=== PATIENT | male | born 1965 | race Caucasian/White ===

== ENCOUNTER → 2017-01-12 | Outpatient (REF) | payer BC | LOC: M LAB REF 13:05 | PROVIDERS: ATTEND Physician Assistant Medical | DX: J02.9 Acute pharyngitis, unspecified (principal) ==

== ENCOUNTER → 2017-03-09 | Outpatient (REF) | payer BC ==
[2017-03-09 14:42] LABS: MEAN CORPUSCULAR HEMOGLOBIN 31.2 pg (27.0-33.0); MEAN CORPUSCULAR HGB CONC 32.8 g/dl (32.0-36.5); RED CELL DISTRIBUTION WIDTH 12.7 % (11.5-14.5); WHITE BLOOD COUNT 13.2 K/mm3 (4.0-10.0)
[2017-03-09 15:05] LABS: ALBUMIN 4.2 GM/DL (3.2-5.2); ALBUMIN/GLOBULIN RATIO 1.27 (1.00-1.93); ALKALINE PHOSPHATASE 86 U/L (45-117); ALT/SGPT 70 U/L (12-78); ANION GAP 5 MEQ/L (8-16); AST/SGOT 26 U/L (15-37); BILIRUBIN,TOTAL 0.3 MG/DL (0.2-1.0); BLOOD UREA NITROGEN 16 MG/DL (7-18); CALCIUM LEVEL 9.1 MG/DL (8.5-10.1); CARBON DIOXIDE LEVEL 30 MEQ/L (21-32); CHLORIDE LEVEL 104 MEQ/L (98-107); CHOLESTEROL LEVEL 177 MG/DL (<200); CREATININE FOR GFR 0.73 MG/DL (0.70-1.30); GLOMERULAR FILTRATION RATE > 60.0 (>56); GLUCOSE, FASTING 128 MG/DL (70-105); SODIUM LEVEL 139 MEQ/L (136-145); TOTAL PROTEIN 7.5 GM/DL (6.4-8.2); TRIGLYCERIDES LEVEL 159 MG/DL (<150)
== END ==
LOC: M LABDRWAD 12:19
PROVIDERS: ATTEND Family Medicine
DX: I10 Essential (primary) hypertension (principal)
CPT/HCPCS: 36415; 80053; 80061; 83036; 84403; 84443; 85027; G0103

== ENCOUNTER → 2017-12-07 | Outpatient (CLI) | payer BC ==
[2017-12-07 10:50] LABS: HEMATOCRIT 47.3 % (42.0-52.0); MEAN CORPUSCULAR HGB CONC 33.8 g/dl (32.0-36.5); MEAN CORPUSCULAR VOLUME 91.7 fl (80.0-96.0); PLATELET COUNT, AUTOMATED 345 10^3/uL (150-450); RED BLOOD COUNT 5.16 10^6/uL (4.30-6.10); RED CELL DISTRIBUTION WIDTH 12.8 % (11.5-14.5); WHITE BLOOD COUNT 10.2 10^3/uL (4.0-10.0)
[2017-12-07 11:19] LABS: ESTIMATED AVERAGE GLUCOSE 140 MG/DL (60-110); HEMOGLOBIN A1c 6.5 %
[2017-12-07 11:22] LABS: ALBUMIN 4.1 GM/DL (3.2-5.2); ALBUMIN/GLOBULIN RATIO 1.24 (1.00-1.93); ALKALINE PHOSPHATASE 83 U/L (45-117); ALT/SGPT 46 U/L (12-78); ANION GAP 8 MEQ/L (8-16); AST/SGOT 21 U/L (7-37); BILIRUBIN,TOTAL 0.4 MG/DL (0.2-1.0); BLOOD UREA NITROGEN 13 MG/DL (7-18); CALCIUM LEVEL 8.9 MG/DL (8.5-10.1); CARBON DIOXIDE LEVEL 27 MEQ/L (21-32); CHLORIDE LEVEL 104 MEQ/L (98-107); CHOLESTEROL LEVEL 169 MG/DL (<200); CREATININE FOR GFR 0.72 MG/DL (0.70-1.30); GLOMERULAR FILTRATION RATE > 60.0 (>56); GLUCOSE, FASTING 116 MG/DL (70-100); HDL CHOLESTEROL 34 MG/DL (>40); LDL CHOLESTEROL 112.2 MG/DL (<100); NON-HDL-C 135 MG/DL; POTASSIUM SERUM 4.5 MEQ/L (3.5-5.1); PROSTATIC SPECIFIC AG MONITOR 1.05 NG/ML (< 4.0); SODIUM LEVEL 139 MEQ/L (136-145); TOTAL PROTEIN 7.4 GM/DL (6.4-8.2); TRIGLYCERIDES LEVEL 114 MG/DL (<150)
[2017-12-07 11:24] LABS: TESTOSTERONE 309 NG/DL (241-827)
== END ==
LOC: M LAB 09:59
DX: I10 Essential (primary) hypertension (principal); E11.9 Type 2 diabetes mellitus without complications; N40.0 Benign prostatic hyperplasia without lower urinary tract symptoms
CPT/HCPCS: 84403

== ENCOUNTER 2018-05-08 12:11 | Inpatient (IN) | payer BC ==
[2018-05-08] MEDS: PHENYLEPHRINE INJ 10MG/ML VIAL (J2370) IV (12:16)
[2018-05-08] MEDS: methylPREDNISolone INJ 125 MG/2 ML VIAL (J2930) IV (12:17)
[2018-05-08] MEDS: GLUCAGON FOR INJ 1 MG VIAL (J1610) IV ×2 (12:20→12:53)
[2018-05-08] MEDS ORDERED: PHENYLEPHRINE INJ 10MG/ML VIAL (J2370) As Ordered (12:23)
[2018-05-08] MEDS: FAMOTIDINE INJ 20MG/2ML VIAL (S0028) IVP (12:23)
[2018-05-08] MEDS ORDERED: FAMOTIDINE INJ 20MG/2ML VIAL (S0028) As Ordered (12:24)
[2018-05-08] MEDS: NS 1,000 ML IV ×3 (12:26→23:39)
[2018-05-08] MEDS: NS IV (12:39)
[2018-05-08 12:44] LABS: HEMATOCRIT 46.2 % (42.0-52.0); HEMOGLOBIN 14.4 g/dl (13.5-17.5); MEAN CORPUSCULAR HGB CONC 31.2 g/dl (32.0-36.5); MEAN CORPUSCULAR VOLUME 99.4 fl (80.0-96.0); PLATELET COUNT, AUTOMATED 324 10^3/uL (150-450); RED BLOOD COUNT 4.65 10^6/uL (4.30-6.10); RED CELL DISTRIBUTION WIDTH 13.3 % (11.5-14.5)
[2018-05-08] MEDS ORDERED: NOREPINEPHRINE 4 MG/4 ML AMP As Ordered (12:54)
[2018-05-08] MEDS ORDERED: GLUCAGON FOR INJ 1 MG VIAL (J1610) As Ordered (12:54)
[2018-05-08] MEDS ORDERED: methylPREDNISolone INJ 125 MG/2 ML VIAL (J2930) As Ordered (12:54)
[2018-05-08 12:55] LABS: AMMONIA 66 uMOL/L (<32)
[2018-05-08 12:57] LABS: INR 1.32; PROTHROMBIN TIME 16.6 SECONDS (12.1-14.4)
[2018-05-08] MEDS ORDERED: diphenhydrAMINE INJ 50MG/ML VIAL (J1200) As Ordered (12:57)
[2018-05-08 12:58] LABS: ACETAMINOPHEN LEVEL < 2.0 UG/ML (10.0-30.0); ALBUMIN 3.4 GM/DL (3.2-5.2); ALBUMIN/GLOBULIN RATIO 1.13 (1.00-1.93); ALKALINE PHOSPHATASE 96 U/L (45-117); ALT/SGPT 42 U/L (12-78); ANION GAP 13 MEQ/L (8-16); AST/SGOT 29 U/L (7-37); BILIRUBIN,DIRECT 0.1 MG/DL (0.0-0.2); BILIRUBIN,TOTAL 0.2 MG/DL (0.2-1.0); BLOOD UREA NITROGEN 17 MG/DL (7-18); C REACTIVE PROTEIN QUANTITATIV < 0.30 MG/DL (0.00-0.30); CALCIUM LEVEL 8.5 MG/DL (8.5-10.1); CARBON DIOXIDE LEVEL 23 MEQ/L (21-32); CHLORIDE LEVEL 109 MEQ/L (98-107); CPK CREATINE PHOSPHOKINASE 350 U/L (39-308); CREATININE FOR GFR 1.19 MG/DL (0.70-1.30); ETHYL ALCOHOL (ETHANOL) 0.003 % (0.000-0.010); GLOMERULAR FILTRATION RATE > 60.0 (>56); GLUCOSE, FASTING 179 MG/DL (70-100); POTASSIUM SERUM 3.6 MEQ/L (3.5-5.1); SALICYLATE LEVEL 2.7 MG/DL (5.0-30.0); SODIUM LEVEL 145 MEQ/L (136-145); TOTAL PROTEIN 6.4 GM/DL (6.4-8.2); TROPONIN I < 0.02 NG/ML (< 0.10)
[2018-05-08] MEDS: diphenhydrAMINE INJ 50MG/ML VIAL (J1200) IV (12:58)
[2018-05-08 12:59] LABS: PARTIAL THROMBOPLASTIN TIME 112.9 SECONDS (25.4-37.6)
[2018-05-08] MEDS: NOREPINEPHRINE BITARTRATE 8 MG in D5W 492 ML IV ×3 (12:59→17:31)
[2018-05-08] MEDS ORDERED: VASOPRESSIN INJ 20 UNITS/ML VIAL As Ordered (13:00)
[2018-05-08] MEDS: VASOPRESSIN INJ 20 UNITS/ML VIAL IV (13:02)
[2018-05-08 13:03] LABS: CK-MB VALUE MASS 3.8 NG/ML (<3.6); MB/CK RELATIVE INDEX 1.08 (< OR =4)
[2018-05-08 13:06] LABS: POS COUNT POS FLAG; POSITIVE DIFF POS FLAG; POSITIVE MORPH POS FLAG; WHITE BLOOD COUNT 12.1 10^3/uL (4.0-10.0)
[2018-05-08 13:07] LABS: ADD MANUAL DIFFER YES; DIFF SLIDE NUMBER 133
[2018-05-08 13:10] LABS: ABG BASE EXCESS -16.7 (-2.0-2.0); ABG HCO3 16.6 MEQ/L (22.0-26.0); ABG O2 SATURATION 89.9 % (95.0-99.0); ABG PARTIAL PRESSURE O2 84.2 mmHg (75.0-100.0); ABG STANDARD HCO3 11.9 MEQ/L (22.0-26.0)
[2018-05-08 13:17] LABS: ABG PARTIAL PRESSURE CO2 79.8 mmHg (35.0-45.0); ABG pH (ARTERIAL) 6.935 UNITS (7.350-7.450)
[2018-05-08 13:28] LABS: ERYTHROCYTE SEDIMENTATION RATE 1 mm/hr (0-20)
[2018-05-08 13:32] LABS: ATYPICAL LYMPH 22 % (0-5); BANDS 8 % (< 11); EOSINOPHILS 2 % (0-5); LYMPHOCYTES 37 % (16-52); METAMYELOCYTES 1 % (0-0); MONOCYTES 2 % (0-8); NEUTROPHILS 28 % (35-75); NUCLEATED RED BLOOD CELL 2 % (0-0); SMUDGE CELLS 1+
[2018-05-08 13:33] LABS: PLATELET ESTIMATE NORMAL (NORMAL)
[2018-05-08 13:53] LABS: IMMEDIATE SPIN CROSSMATCH 1 2
[2018-05-08 14:04] LABS: HEMATOCRIT 42.2 % (42.0-52.0); HEMOGLOBIN 13.6 g/dl (13.5-17.5)
[2018-05-08 14:15] LABS: ABG BASE EXCESS -15.4 (-2.0-2.0); ABG HCO3 15.6 MEQ/L (22.0-26.0); ABG O2 SATURATION 99.8 % (95.0-99.0); ABG PARTIAL PRESSURE CO2 58.6 mmHg (35.0-45.0); ABG PARTIAL PRESSURE O2 442.2 mmHg (75.0-100.0); ABG TOTAL CO2 17.4 MEQ/L (22.0-29.0)
[2018-05-08 14:16] LABS: ABG pH (ARTERIAL) 7.044 UNITS (7.350-7.450)
[2018-05-08 14:24] LABS: HEMATOCRIT 42.3 % (42.0-52.0)
[2018-05-08] MEDS ORDERED: EPINEPHrine INJ 1 MG/ML 1ML AMP (14:42)
[2018-05-08] MEDS ORDERED: GLUCAGON FOR INJ 1 MG VIAL (J1610) IM (14:52)
[2018-05-08] MEDS: IPRATROPIUM 0.5MG/ALBUTEROL 2.5MG INH SOL UD 3ML (DUONEB)(J7620) NEB ×2 (16:00→19:51)
[2018-05-08 16:27] LABS: ABG BASE EXCESS -13.2 (-2.0-2.0); ABG HCO3 11.3 MEQ/L (22.0-26.0); ABG PARTIAL PRESSURE CO2 24.7 mmHg (35.0-45.0); ABG PARTIAL PRESSURE O2 90.9 mmHg (75.0-100.0); ABG STANDARD HCO3 14.6 MEQ/L (22.0-26.0); ABG TOTAL CO2 12.1 MEQ/L (22.0-29.0); ABG pH (ARTERIAL) 7.279 UNITS (7.350-7.450)
[2018-05-08] MEDS: levETIRAcetam INJection 1,000 MG in D5W 100 ML IV (17:21)
[2018-05-08 18:03] LABS: HEMATOCRIT 51.1 % (42.0-52.0); HEMOGLOBIN 16.9 g/dl (13.5-17.5); MEAN CORPUSCULAR HEMOGLOBIN 31.2 pg (27.0-33.0); MEAN CORPUSCULAR HGB CONC 33.1 g/dl (32.0-36.5); MEAN CORPUSCULAR VOLUME 94.3 fl (80.0-96.0); PLATELET COUNT, AUTOMATED 247 10^3/uL (150-450); RED BLOOD COUNT 5.42 10^6/uL (4.30-6.10); RED CELL DISTRIBUTION WIDTH 13.2 % (11.5-14.5)
[2018-05-08 18:05] LABS: POSITIVE DIFF POS FLAG; WHITE BLOOD COUNT 38.3 10^3/uL (4.0-10.0)
[2018-05-08 18:06] LABS: ADD MANUAL DIFFER YES; DIFF SLIDE NUMBER 157; POS COUNT POS FLAG
[2018-05-08] MEDS ORDERED: ROCURONIUM BROMIDE 50 MG/5 ML VIAL (18:14)
[2018-05-08 18:25] LABS: ALBUMIN 3.7 GM/DL (3.2-5.2); ALBUMIN/GLOBULIN RATIO 1.28 (1.00-1.93); ALT/SGPT 237 U/L (12-78); ANION GAP 15 MEQ/L (8-16); AST/SGOT 245 U/L (7-37); BILIRUBIN,TOTAL 0.4 MG/DL (0.2-1.0); BLOOD UREA NITROGEN 26 MG/DL (7-18); CARBON DIOXIDE LEVEL 16 MEQ/L (21-32); CHLORIDE LEVEL 109 MEQ/L (98-107); CHOLESTEROL LEVEL 134 MG/DL (< 200); CREATININE FOR GFR 1.66 MG/DL (0.70-1.30); GLOMERULAR FILTRATION RATE 46.5 (>56); GLUCOSE, FASTING 313 MG/DL (70-100); LDH LACTATE DEHYDROGENASE 731 U/L (87-241); MAGNESIUM LEVEL 1.6 MG/DL (1.8-2.4); PHOSPHORUS LEVEL 4.5 MG/DL (2.5-4.9); POTASSIUM SERUM 4.6 MEQ/L (3.5-5.1); SODIUM LEVEL 140 MEQ/L (136-145); TOTAL PROTEIN 6.6 GM/DL (6.4-8.2); TRIGLYCERIDES LEVEL 89 MG/DL (<150); TROPONIN I 1.24 NG/ML (< 0.10)
[2018-05-08 18:29] LABS: LACTIC ACID SEPSIS PROTOCOL 6.6 MMOL/L (0.4-2.0)
[2018-05-08 18:39] LABS: ALKALINE PHOSPHATASE 108 U/L (45-117); CK-MB VALUE MASS 48.9 NG/ML (<3.6); MB/CK RELATIVE INDEX 3.06 (< OR =4)
[2018-05-08 18:40] LABS: CPK CREATINE PHOSPHOKINASE 1593 U/L (39-308)
[2018-05-08 18:52] LABS: ATYPICAL LYMPH 3 % (0-5); BANDS 28 % (< 11); LYMPHOCYTES 10 % (16-52); MONOCYTES 3 % (0-8); NEUTROPHILS 56 % (35-75)
[2018-05-08 18:53] LABS: PLATELET ESTIMATE NORMAL (NORMAL); SMUDGE CELLS 1+
[2018-05-08] MEDS ORDERED: INSULIN HUMAN REGULAR 100 UNITS in NS 99 ML IV (18:56)
[2018-05-08] MEDS ORDERED: INSULIN IV RATE CHANGE DOCUMENTATION ML/HR XX (19:00)
[2018-05-08] MEDS ORDERED: DEXTROSE 50% 50 ML SYRINGE IV (19:15)
[2018-05-08] MEDS ORDERED: GLUCAGON FOR INJ 1 MG VIAL (J1610) SC (19:15)
[2018-05-08] MEDS ORDERED: GLUCOSE 4 GM CHEW TABLET PO (19:15)
[2018-05-08 19:52] LABS: INR 1.46
[2018-05-08 19:57] LABS: BEDSIDE GLUCOSE 264 MG/DL (70-105)
[2018-05-08] MEDS: HumaLOG INSULIN (NovoLOG) PER UNIT SC (20:05)
[2018-05-08] MEDS: PANTOPRAZOLE 40MG INJ (PROTONIX) (C9113) IV (20:06)
[2018-05-08 20:09] LABS: ABG BASE EXCESS -13.5 (-2.0-2.0); ABG HCO3 11.4 MEQ/L (22.0-26.0); ABG O2 SATURATION 96.9 % (95.0-99.0); ABG PARTIAL PRESSURE CO2 26.2 mmHg (35.0-45.0); ABG PARTIAL PRESSURE O2 91.7 mmHg (75.0-100.0); ABG STANDARD HCO3 14.5 MEQ/L (22.0-26.0); ABG TOTAL CO2 12.2 MEQ/L (22.0-29.0); ABG pH (ARTERIAL) 7.256 UNITS (7.350-7.450)
[2018-05-08] MEDS: CHLORHEXIDINE ORAL RINSE 0.12%/15ML 120ML BOTTLE MT (20:29)
[2018-05-08] MEDS: HEPARIN SOD (PORCINE) 5000 UNITS/ML VIAL SC (22:12)
[2018-05-08 23:21] LABS: CK-MB VALUE MASS 70.9 NG/ML (<3.6)
[2018-05-08 23:27] LABS: CPK CREATINE PHOSPHOKINASE 2142 U/L (39-308)
[2018-05-09] MEDS: NOREPINEPHRINE BITARTRATE 8 MG in D5W 492 ML IV ×5 (00:18→22:03)
[2018-05-09 00:25] LABS: BEDSIDE GLUCOSE 224 MG/DL (70-105)
[2018-05-09] MEDS: HumaLOG INSULIN (NovoLOG) PER UNIT SC ×5 (00:28→23:59)
[2018-05-09] MEDS: VASOPRESSIN INJ 20 UNITS in NS 500 ML IV ×3 (04:45→20:45)
[2018-05-09] MEDS ORDERED: VASOPRESSIN INJ 20 UNITS/ML VIAL As Ordered (04:48)
[2018-05-09 06:00] LABS: BEDSIDE GLUCOSE 203 MG/DL (70-105)
[2018-05-09] MEDS: NS 1,000 ML IV (06:04)
[2018-05-09] MEDS: HEPARIN SOD (PORCINE) 5000 UNITS/ML VIAL SC ×3 (06:04→22:00)
[2018-05-09 06:32] LABS: BASO % 0.2 % (0.0-1.0); HEMATOCRIT 48.4 % (42.0-52.0); HEMOGLOBIN 16.1 g/dl (13.5-17.5); IMMATURE GRANULOCYTE % 0.2 % (0-3.0); LYMPH # 1.2 10^3/uL (1.5-4.5); MEAN CORPUSCULAR HEMOGLOBIN 31.3 pg (27.0-33.0); MEAN CORPUSCULAR HGB CONC 33.3 g/dl (32.0-36.5); MEAN CORPUSCULAR VOLUME 94.2 fl (80.0-96.0); MONO % 16.6 % (0.0-5.0); NEUTROPHILS # 9.6 10^3/uL (1.8-7.7); PLATELET COUNT, AUTOMATED 210 10^3/uL (150-450); RED BLOOD COUNT 5.14 10^6/uL (4.30-6.10); RED CELL DISTRIBUTION WIDTH 13.5 % (11.5-14.5)
[2018-05-09 06:49] LABS: MONO # 2.2 10^3/uL (0.0-0.8); POSITIVE DIFF POS FLAG; POSITIVE MORPH POS FLAG
[2018-05-09 06:53] LABS: ABG BASE EXCESS -14.8 (-2.0-2.0); ABG HCO3 11.3 MEQ/L (22.0-26.0); ABG O2 SATURATION 96.7 % (95.0-99.0); ABG PARTIAL PRESSURE CO2 28.6 mmHg (35.0-45.0); ABG STANDARD HCO3 13.6 MEQ/L (22.0-26.0); ABG TOTAL CO2 12.1 MEQ/L (22.0-29.0)
[2018-05-09 06:59] LABS: ABG pH (ARTERIAL) 7.213 UNITS (7.350-7.450)
[2018-05-09 07:01] LABS: ALBUMIN 3.3 GM/DL (3.2-5.2); ALBUMIN/GLOBULIN RATIO 1.27 (1.00-1.93); ALKALINE PHOSPHATASE 70 U/L (45-117); ALT/SGPT 303 U/L (12-78); ANION GAP 12 MEQ/L (8-16); AST/SGOT 243 U/L (7-37); BILIRUBIN,TOTAL 0.3 MG/DL (0.2-1.0); BLOOD UREA NITROGEN 51 MG/DL (7-18); CARBON DIOXIDE LEVEL 13 MEQ/L (21-32); CHLORIDE LEVEL 114 MEQ/L (98-107); CREATININE FOR GFR 3.26 MG/DL (0.70-1.30); GLOMERULAR FILTRATION RATE 21.4 (>56); GLUCOSE, FASTING 199 MG/DL (70-100); MAGNESIUM LEVEL 1.3 MG/DL (1.8-2.4); SODIUM LEVEL 139 MEQ/L (136-145); TOTAL PROTEIN 5.9 GM/DL (6.4-8.2)
[2018-05-09 07:26] LABS: POTASSIUM SERUM 7.1 MEQ/L (3.5-5.1)
[2018-05-09] MEDS: IPRATROPIUM 0.5MG/ALBUTEROL 2.5MG INH SOL UD 3ML (DUONEB)(J7620) NEB ×4 (08:19→19:27)
[2018-05-09] MEDS: PANTOPRAZOLE 40MG INJ (PROTONIX) (C9113) IV ×2 (08:43→20:44)
[2018-05-09] MEDS: SODIUM BICARBONATE 8.4% INJ 50 ML SYRINGE IV (08:43)
[2018-05-09] MEDS: CALCIUM GLUCONATE 1,000 MG in D5W MINI-BAG PLUS 100 ML IV ×2 (08:43→17:55)
[2018-05-09] MEDS: CHLORHEXIDINE ORAL RINSE 0.12%/15ML 120ML BOTTLE MT ×2 (08:43→20:45)
[2018-05-09] MEDS: HumuLIN R (REGULAR) INSULIN (NovoLIN R) **100U/ML** PER UNIT IV (08:43)
[2018-05-09] MEDS ORDERED: PANTOPRAZOLE 40MG INJ (PROTONIX) (C9113) IV (09:00)
[2018-05-09] MEDS: SODIUM BICARBONATE 150 MEQ in D5W 1,000 ML IV ×2 (09:57→18:30)
[2018-05-09 10:29] LABS: CK-MB VALUE MASS 54.1 NG/ML (<3.6); CPK CREATINE PHOSPHOKINASE 3464 U/L (39-308); MB/CK RELATIVE INDEX 1.56 (< OR =4)
[2018-05-09 10:31] LABS: TROPONIN I 7.45 NG/ML (< 0.10)
[2018-05-09 12:37] LABS: BEDSIDE GLUCOSE 195 MG/DL (70-105)
[2018-05-09 13:43] LABS: HEMATOCRIT 46.4 % (42.0-52.0); HEMOGLOBIN 15.7 g/dl (13.5-17.5); MEAN CORPUSCULAR HEMOGLOBIN 30.5 pg (27.0-33.0); MEAN CORPUSCULAR HGB CONC 33.8 g/dl (32.0-36.5); MEAN CORPUSCULAR VOLUME 90.3 fl (80.0-96.0); PLATELET COUNT, AUTOMATED 177 10^3/uL (150-450); RED BLOOD COUNT 5.14 10^6/uL (4.30-6.10); RED CELL DISTRIBUTION WIDTH 13.6 % (11.5-14.5); WHITE BLOOD COUNT 10.4 10^3/uL (4.0-10.0)
[2018-05-09 14:07] LABS: ABG BASE EXCESS -10.7 (-2.0-2.0); ABG HCO3 13.8 MEQ/L (22.0-26.0); ABG O2 SATURATION 96.9 % (95.0-99.0); ABG PARTIAL PRESSURE CO2 28.4 mmHg (35.0-45.0); ABG PARTIAL PRESSURE O2 83.3 mmHg (75.0-100.0); ABG STANDARD HCO3 16.2 MEQ/L (22.0-26.0); ABG TOTAL CO2 14.7 MEQ/L (22.0-29.0); ABG pH (ARTERIAL) 7.305 UNITS (7.350-7.450)
[2018-05-09 14:27] LABS: POSITIVE MORPH POS FLAG
[2018-05-09 14:28] LABS: ADD MANUAL DIFFER YES; DIFF SLIDE NUMBER 289
[2018-05-09 14:29] LABS: BANDS 5 % (< 11); LYMPHOCYTES 25 % (16-52); MONOCYTES 12 % (0-8); NEUTROPHILS 58 % (35-75)
[2018-05-09 14:30] LABS: PLATELET ESTIMATE NORMAL (NORMAL)
[2018-05-09 14:31] LABS: ALBUMIN 3.1 GM/DL (3.2-5.2); ALBUMIN/GLOBULIN RATIO 1.24 (1.00-1.93); ALKALINE PHOSPHATASE 68 U/L (45-117); ALT/SGPT 447 U/L (12-78); ANION GAP 11 MEQ/L (8-16); AST/SGOT 391 U/L (7-37); BILIRUBIN,TOTAL 0.4 MG/DL (0.2-1.0); BLOOD UREA NITROGEN 65 MG/DL (7-18); CARBON DIOXIDE LEVEL 15 MEQ/L (21-32); CHLORIDE LEVEL 110 MEQ/L (98-107); CHOLESTEROL LEVEL 91 MG/DL (< 200); CPK CREATINE PHOSPHOKINASE 4049 U/L (39-308); CREATININE FOR GFR 4.03 MG/DL (0.70-1.30); GLOMERULAR FILTRATION RATE 16.7 (>56); GLUCOSE, FASTING 204 MG/DL (70-100); LDH LACTATE DEHYDROGENASE 735 U/L (87-241); SODIUM LEVEL 136 MEQ/L (136-145); TOTAL PROTEIN 5.6 GM/DL (6.4-8.2); TRIGLYCERIDES LEVEL 96 MG/DL (<150)
[2018-05-09 14:32] LABS: POTASSIUM SERUM 6.3 MEQ/L (3.5-5.1)
[2018-05-09 14:34] LABS: CALCIUM LEVEL 5.8 MG/DL (8.5-10.1)
[2018-05-09] MEDS: MAG SULF 1GM/100ML (MAG RUN) 1 GM in APPROPRIATE DILUENT 1 EA IV (14:59)
[2018-05-09 16:17] LABS: IONIZED CALCIUM 3.4 MG/DL (4.5-5.3)
[2018-05-09 17:26] LABS: BEDSIDE GLUCOSE 172 MG/DL (70-105)
[2018-05-09 23:57] LABS: BEDSIDE GLUCOSE 301 MG/DL (70-105)
[2018-05-10] MEDS: SODIUM BICARBONATE 150 MEQ in D5W 1,000 ML IV (01:39)
== END 2018-05-10 02:22 | disposition expired | DRG 816 ==
LOC: M ED 12:11 → M ED INP 13:27 → M ICU 13:35
PROC: 5A1945Z Respiratory Ventilation, 24-96 Consecutive Hours (ICD-10-PCS; principal; 2018-05-08)
PROC: 02HV33Z Insertion of Infusion Device into Superior Vena Cava, Percutaneous Approach (ICD-10-PCS; 2018-05-08)
DX: T63.441A Toxic effect of venom of bees, accidental (unintentional), initial encounter (principal); G93.6 Cerebral edema; J96.00 Acute respiratory failure, unspecified whether with hypoxia or hypercapnia; I46.9 Cardiac arrest, cause unspecified; G93.1 Anoxic brain damage, not elsewhere classified; K92.2 Gastrointestinal hemorrhage, unspecified; I95.9 Hypotension, unspecified; I10 Essential (primary) hypertension; E11.9 Type 2 diabetes mellitus without complications; F17.200 Nicotine dependence, unspecified, uncomplicated; W57.XXXA Bitten or stung by nonvenomous insect and other nonvenomous arthropods, initial encounter; Y92.009 Unspecified place in unspecified non-institutional (private) residence as the place of occurrence of the external cause; Z66 Do not resuscitate